=== PATIENT | male | born 1960 | race Caucasian/White ===

== ENCOUNTER 2021-07-03 13:24 | Inpatient (IN) | payer OTHER ==
[2021-07-03] MEDS ORDERED: SODIUM CHLORIDE 0.9% 500 ML INFUS.BAG IV ONE (18:33)
[2021-07-03] MEDS ORDERED: CEFTRIAXONE 1 GM in DEXTROSE 5%-WATER - 100 ML IVPB ONE (19:31)
[2021-07-03] MEDS ORDERED: AZITHROMYCIN IVPB 500 MG in DEXTROSE 5%-WATER - 250 ML IVPB ONE (19:31)
[2021-07-03] MEDS ORDERED: CEFTRIAXONE 1 GM/50 ML BAG ONE (19:48)
[2021-07-03 20:45] LABS: BASO % 0.2 % (0-2.0); EOS % 0.1 % (0-4.5); HEMATOCRIT 48.7 % (35.4-49); HEMOGLOBIN 16.4 GM/dL (11.7-16.9); LYMPH % 8.8 % (8-40); MCH 29.7 pg (25.7-33.7); MCHC 33.7 g/dl (32.0-35.9); MEAN PLT VOLUME 8.6 fl (7.5-11.1); MONO % 7.9 % (3.8-10.2); PLATELET COUNT 351 10^3/uL (134-434); RBC 5.53 M/mm3 (4.00-5.60); RDW 13.6 % (11.9-15.9); WHITE BLOOD COUNT 7.4 K/mm3 (4.0-10.0)
[2021-07-03 20:48] LABS: VENOUS BASE EXCESS 4.5 mmol/L (-2-2); VENOUS O2 SATURATION 25.2 % (70-80); VENOUS PCO2 46.7 mmHg (38-52); VENOUS PH 7.424 (7.310-7.410)
[2021-07-03] MEDS ORDERED: AZITHROMYCIN IVPB 500 MG/250 ML BAG IVPB ONE (20:55)
[2021-07-03 21:21] LABS: CHLORIDE 108 mmol/L (98-107); SODIUM 141 mmol/L (136-145)
[2021-07-03 21:23] LABS: ANION GAP 9 MMOL/L (8-16); BLOOD UREA NITROGEN 27.6 mg/dL (7-18); CO2 24 mmol/L (21-32)
[2021-07-03 21:24] LABS: ALBUMIN 2.4 g/dl (3.4-5.0); GLUCOSE,RANDOM 85 mg/dL (74-106)
[2021-07-03 21:27] LABS: SGOT/AST 90 U/L (15-37); SGPT/ALT 66 U/L (13-61)
[2021-07-03 21:28] LABS: BILIRUBIN,TOTAL 0.7 mg/dL (0.2-1); TOT PROT 5.9 g/dl (6.4-8.2)
[2021-07-03 21:29] LABS: ALK PHOS 54 U/L (45-117)
[2021-07-04] MEDS ORDERED: DEXAMETHASONE SOD PHOSPHATE 4 MG/1 ML VIAL IVPUSH ONE (00:46)
[2021-07-04] MEDS ORDERED: DEXAMETHASONE SOD PHOSPHATE 10 MG/1 ML VIAL ONE (01:02)
[2021-07-04 06:01] VITALS: BMI 22.4
[2021-07-04] MEDS ORDERED: ACETAMINOPHEN 1000 MG/100 ML BAG IVPB PRN (06:39)
[2021-07-04] MEDS ORDERED: ENOXAPARIN NA (PORCINE) 40 MG/0.4 ML DISP.SYRIN SQ SCH (10:00)
[2021-07-04] MEDS ORDERED: ERGOCALCIFEROL (VIT D2) 50,000 UNIT (1.25 MG) CAPSULE PO SCH (10:00)
[2021-07-04 10:10] LABS: ALBUMIN 2.2 g/dl (3.4-5.0); CALCIUM 7.8 mg/dL (8.5-10.1); MAGNESIUM 2.5 mg/dL (1.8-2.4)
[2021-07-04 10:11] LABS: BASO % 0.2 % (0-2.0); HEMATOCRIT 41.7 % (35.4-49); LYMPH % 9.4 % (8-40); MCH 29.7 pg (25.7-33.7); MCHC 33.7 g/dl (32.0-35.9); MEAN PLT VOLUME 9.2 fl (7.5-11.1); MONO % 5.5 % (3.8-10.2); NEUT % 84.9 % (42.8-82.8); PLATELET COUNT 283 10^3/uL (134-434); RBC 4.73 M/mm3 (4.00-5.60); RDW 13.7 % (11.9-15.9); WHITE BLOOD COUNT 5.3 K/mm3 (4.0-10.0)
[2021-07-04 10:13] LABS: PHOSPHOROUS 3.5 mg/dL (2.5-4.9)
[2021-07-04 10:15] LABS: BILIRUBIN,TOTAL 0.6 mg/dL (0.2-1); TOT PROT 5.6 g/dl (6.4-8.2)
[2021-07-04] MEDS ORDERED: cefTRIAXone SODIUM 1 GM VIAL ONE (10:29)
[2021-07-04] MEDS ORDERED: DEXTROSE 5%-WATER - 50 ML IVPB ONE (10:30)
[2021-07-04] MEDS: CEFTRIAXONE 1 GM in DEXTROSE 5%-WATER - 50 ML IVPB SCH (10:38)
[2021-07-04] MEDS: AZITHROMYCIN IVPB 500 MG/250 ML BAG IVPB SCH (10:38)
[2021-07-04] MEDS: DEXAMETHASONE SOD PHOSPHATE 4 MG/1 ML VIAL IVPUSH SCH (10:38)
[2021-07-04] MEDS: ASCORBIC ACID 250 MG TABLET (FP) PO SCH (10:38)
[2021-07-04] MEDS: ZINC SULFATE 220 MG CAPSULE (FP) PO SCH (10:38)
[2021-07-04 16:48] LABS: EPI CELLS 6 /uL (0-25.1); HYALINE CASTS 2 /uL (0-3.1); PH,URINE 5.5 (5.0-8.0); URINE APPEARANCE CLEAR; URINE BACTERIA 1 /uL (0-1359); URINE BILIRUBIN NEGATIVE (NEGATIVE); URINE COLOR DK YELLOW; URINE GLUCOSE (UA) NEGATIVE (NEGATIVE); URINE KETONE NEGATIVE (NEGATIVE); URINE LEUK ESTERASE NEGATIVE (NEGATIVE); URINE NITRITE NEGATIVE (NEGATIVE); URINE PROTEIN 1+ (NEGATIVE); URINE RBC 4 /uL (0-23.9); URINE WBC 11 /uL (0-25.8)
[2021-07-04] MEDS: ENOXAPARIN NA (PORCINE) 40 MG/0.4 ML DISP.SYRIN SQ SCH (22:20)
[2021-07-05 09:19] LABS: HEMATOCRIT 42.3 % (35.4-49); HEMOGLOBIN 14.1 GM/dL (11.7-16.9); MCH 29.4 pg (25.7-33.7); MCHC 33.3 g/dl (32.0-35.9); MEAN CELL VOLUME 88.2 fl (80-96); MEAN PLT VOLUME 9.5 fl (7.5-11.1); PLATELET COUNT 350 10^3/uL (134-434); RDW 13.4 % (11.9-15.9)
[2021-07-05] MEDS ORDERED: cefTRIAXone SODIUM 1 GM VIAL ONE (09:38)
[2021-07-05] MEDS ORDERED: DEXTROSE 5%-WATER - 50 ML IVPB ONE (09:38)
[2021-07-05 09:45] LABS: MAGNESIUM 2.5 mg/dL (1.8-2.4)
[2021-07-05 09:47] LABS: ALBUMIN 2.2 g/dl (3.4-5.0); BLOOD UREA NITROGEN 28.6 mg/dL (7-18); CALCIUM 8.1 mg/dL (8.5-10.1)
[2021-07-05 09:48] LABS: CREATININE 0.9 mg/dL (0.55-1.3)
[2021-07-05 09:50] LABS: PHOSPHOROUS 3.7 mg/dL (2.5-4.9)
[2021-07-05 09:51] LABS: TOT PROT 5.6 g/dl (6.4-8.2)
[2021-07-05 09:52] LABS: BILIRUBIN,TOTAL 0.7 mg/dL (0.2-1)
[2021-07-05] MEDS: AZITHROMYCIN IVPB 500 MG/250 ML BAG IVPB SCH ×2 (10:03→10:30)
[2021-07-05] MEDS: CEFTRIAXONE 1 GM in DEXTROSE 5%-WATER - 50 ML IVPB SCH (10:05)
[2021-07-05] MEDS: DEXAMETHASONE SOD PHOSPHATE 4 MG/1 ML VIAL IVPUSH SCH ×2 (10:06→10:30)
[2021-07-05] MEDS: ZINC SULFATE 220 MG CAPSULE (FP) PO SCH (10:08)
[2021-07-05] MEDS: ENOXAPARIN NA (PORCINE) 40 MG/0.4 ML DISP.SYRIN SQ SCH ×2 (10:08→21:10)
[2021-07-05] MEDS: ASCORBIC ACID 250 MG TABLET (FP) PO SCH (10:09)
[2021-07-05] MEDS ORDERED: CHOLECALCIFEROL (VIT D3 5000 UNITS) 125 MCG TAB PO SCH (12:30)
[2021-07-05] MEDS ORDERED: ACETAMINOPHEN 325 MG TABLET (FP) PO PRN (21:32)
[2021-07-05] MEDS ORDERED: MELATONIN 5 MG TABLETS PO PRN (21:32)
[2021-07-05] MEDS ORDERED: ATORVASTATIN CA 20 MG TABLET (FP) PO SCH (22:00)
[2021-07-06] MEDS ORDERED: CHOLECALCIFEROL (VIT D3) 5000 UNITS (125 MCG) CAP PO SCH (10:00)
[2021-07-06] MEDS: ENOXAPARIN NA (PORCINE) 40 MG/0.4 ML DISP.SYRIN SQ SCH (10:05)
[2021-07-06] MEDS: ASCORBIC ACID 250 MG TABLET (FP) PO SCH (10:06)
[2021-07-06] MEDS: DEXAMETHASONE SOD PHOSPHATE 4 MG/1 ML VIAL IVPUSH SCH (10:06)
[2021-07-06] MEDS: ZINC SULFATE 220 MG CAPSULE (FP) PO SCH (10:06)
[2021-07-06] MEDS: AZITHROMYCIN IVPB 500 MG/250 ML BAG IVPB SCH (10:07)
[2021-07-06 16:23] VITALS: BP 136/71; PULSE 62; TEMP 98.6
== END 2021-07-06 17:21 | disposition home or self-care (01) | DRG 177 ==
LOC: JER 13:24 → JERBED 20:57 → J8W 07-04 05:12
PROVIDERS: ADMIT Internal Medicine; ATTEND Internal Medicine
DX: U07.1 COVID-19 (principal); J12.82 Pneumonia due to coronavirus disease 2019; J96.21 Acute and chronic respiratory failure with hypoxia; F20.9 Schizophrenia, unspecified; R91.1 Solitary pulmonary nodule; M47.9 Spondylosis, unspecified; K80.20 Calculus of gallbladder without cholecystitis without obstruction
CPT/HCPCS: 36415; 71045-TC-FY; 71275-TC; 80053; 80061; 81003; 82550; 82553; 82728; 82803; 83036; 83615; 83735; 84100; 84484; 85025; 85027; 85379; 86140; 87804; 87807; 87899; 93005; 93010; 94761; 99285-25; C9803; U0003; U0005

== ENCOUNTER 2023-03-29 17:24 | Inpatient (IN) | payer OTHER ==
[2023-03-29 17:35] VITALS: BMI 23.6
[2023-03-29] MEDS ORDERED: MIDAZOLAM HCL 2 MG/2 ML SINGLE DOSE VIAL IM ONE (19:37)
[2023-03-29] MEDS ORDERED: HALOPERIDOL LACTATE 5 MG/ML IM ONE ×2 (19:51→20:04)
[2023-03-29] MEDS ORDERED: MIDAZOLAM HCL 2 MG/2 ML SINGLE DOSE VIAL ONE (20:03)
[2023-03-29 20:13] LABS: BASO % 0.5 % (0-2.0); EOS % 0.9 % (0-4.5); LYMPH % 21.9 % (8-40); MCH 31.7 pg (25.7-33.7); MCHC 34.8 g/dl (32.0-35.9); MEAN CELL VOLUME 91.1 fl (80-96); MEAN PLT VOLUME 9.1 fl (7.5-11.1); MONO % 8.2 % (3.8-10.2); NEUT % 68.5 % (42.8-82.8); PLATELET COUNT 303 10^3/uL (134-434); RBC 4.72 M/mm3 (4.00-5.60); RDW 15.2 % (11.9-15.9); WHITE BLOOD COUNT 7.9 K/mm3 (4.0-10.0)
[2023-03-29 20:19] LABS: INR 1.01 (0.83-1.09); PROTHROMBIN TIME (PATIENT) 11.7 SEC (9.7-13.0)
[2023-03-29 20:22] LABS: ACTIVATED PTT 29.1 SECONDS (25.2-36.5)
[2023-03-29 20:27] LABS: URINE APPEARANCE CLEAR; URINE BILIRUBIN NEGATIVE (NEGATIVE); URINE COLOR YELLOW; URINE GLUCOSE (UA) NEGATIVE (NEGATIVE); URINE KETONE TRACE (NEGATIVE); URINE LEUK ESTERASE NEGATIVE (NEGATIVE); URINE NITRITE NEGATIVE (NEGATIVE); URINE PROTEIN NEGATIVE (NEGATIVE); URINE UROBILINOGEN 0.2 mg/dL (0.2-1.0)
[2023-03-29 20:31] LABS: POTASSIUM 3.9 mmol/L (3.5-5.1)
[2023-03-29 20:34] LABS: ALBUMIN 3.7 g/dl (3.4-5.0); BLOOD UREA NITROGEN 26.7 mg/dL (7-18)
[2023-03-29 20:37] LABS: CREATININE 1.3 mg/dL (0.55-1.3)
[2023-03-29 20:39] LABS: BILIRUBIN,TOTAL 0.6 mg/dL (0.2-1); TOT PROT 7.1 g/dl (6.4-8.2)
[2023-03-30 05:19] LABS: COCAINE, UR NEGATIVE (NEGATIVE); URINE AMPHETAMINES NEGATIVE (NEGATIVE); URINE BARBITURATES NEGATIVE (NEGATIVE); URINE BENZODIAZEPINES NEGATIVE (NEGATIVE)
[2023-03-30 06:08] LABS: METHADONE, UR NEGATIVE (NEGATIVE); OPIATES, URI NEGATIVE (NEGATIVE); PHENCYCLIDINE,URINE NEGATIVE (NEGATIVE)
[2023-03-30 07:07] LABS: POTASSIUM 3.8 mmol/L (3.5-5.1)
[2023-03-30 07:10] LABS: HEMATOCRIT 40.2 % (35.4-49); HEMOGLOBIN 13.4 GM/dL (11.7-16.9); MCH 30.9 pg (25.7-33.7); MCHC 33.2 g/dl (32.0-35.9); MEAN PLT VOLUME 8.5 fl (7.5-11.1); PLATELET COUNT 280 10^3/uL (134-434); RBC 4.32 M/mm3 (4.00-5.60); RDW 15.4 % (11.9-15.9); WHITE BLOOD COUNT 7.7 K/mm3 (4.0-10.0)
[2023-03-30 08:26] LABS: CALCIUM 8.6 mg/dL (8.5-10.1)
[2023-03-30 08:28] LABS: ALBUMIN 3.4 g/dl (3.4-5.0)
[2023-03-30 08:29] LABS: CREATININE 1.1 mg/dL (0.55-1.3); PHOSPHOROUS 3.6 mg/dL (2.5-4.9)
[2023-03-30 08:31] LABS: TOT PROT 6.5 g/dl (6.4-8.2)
[2023-03-30] MEDS ORDERED: HALOPERIDOL LACTATE 5 MG/ML IM ONE (08:35)
[2023-03-30 08:36] LABS: MAGNESIUM 2.2 mg/dL (1.8-2.4)
[2023-03-30] MEDS: metoPROLOL SUCCINATE 25 MG TAB.SR.24H (FP) PO SCH ×2 (10:38→22:07)
[2023-03-30] MEDS: HALOPERIDOL 1 MG TABLET PO SCH ×2 (10:49→22:06)
[2023-03-30] MEDS: BENZTROPINE MESYLATE 0.5 MG TABLET (FP) PO SCH (11:47)
[2023-03-30] MEDS: FLUoxetine HCL 10 MG CAPSULE PO SCH (11:47)
[2023-03-30] MEDS: HEPARIN NA (PORCINE) 5,000 UNITS/ML 1ML VIAL SQ SCH ×2 (15:30→22:06)
[2023-03-31] MEDS: HEPARIN NA (PORCINE) 5,000 UNITS/ML 1ML VIAL SQ SCH ×3 (05:50→21:59)
[2023-03-31] MEDS: metoPROLOL SUCCINATE 25 MG TAB.SR.24H (FP) PO SCH ×2 (09:58→22:00)
[2023-03-31] MEDS: BENZTROPINE MESYLATE 0.5 MG TABLET (FP) PO SCH (09:58)
[2023-03-31] MEDS: HALOPERIDOL 1 MG TABLET PO SCH (09:59)
[2023-03-31] MEDS: FLUoxetine HCL 10 MG CAPSULE PO SCH (11:15)
[2023-03-31] MEDS: TRIHEXYPHENIDYL HCL 2 MG TABLET PO SCH (21:59)
[2023-04-01] MEDS: HEPARIN NA (PORCINE) 5,000 UNITS/ML 1ML VIAL SQ SCH ×3 (06:20→21:55)
[2023-04-01] MEDS: metoPROLOL SUCCINATE 25 MG TAB.SR.24H (FP) PO SCH (10:08)
[2023-04-01] MEDS: TRIHEXYPHENIDYL HCL 2 MG TABLET PO SCH ×2 (10:08→21:54)
[2023-04-01] MEDS ORDERED: ACETAMINOPHEN 325 MG TABLET (FP) PO PRN (14:23)
[2023-04-02] MEDS: HEPARIN NA (PORCINE) 5,000 UNITS/ML 1ML VIAL SQ SCH ×3 (05:30→21:01)
[2023-04-02] MEDS ORDERED: metoPROLOL SUCCINATE 25 MG TAB.SR.24H (FP) PO SCH (10:00)
[2023-04-02 10:06] LABS: METHYLMALONIC ACID- 184 nmol/L (0-378)
[2023-04-02 10:31] LABS: EOS % 0.9 % (0-4.5); HEMATOCRIT 37.8 % (35.4-49); HEMOGLOBIN 12.9 GM/dL (11.7-16.9); LYMPH % 27.1 % (8-40); MCH 31.3 pg (25.7-33.7); MCHC 34.2 g/dl (32.0-35.9); MEAN CELL VOLUME 91.5 fl (80-96); MEAN PLT VOLUME 8.9 fl (7.5-11.1); MONO % 6.9 % (3.8-10.2); NEUT % 64.1 % (42.8-82.8); PLATELET COUNT 228 10^3/uL (134-434); RBC 4.13 M/mm3 (4.00-5.60); RDW 14.9 % (11.9-15.9); WHITE BLOOD COUNT 5.9 K/mm3 (4.0-10.0)
[2023-04-02] MEDS: TRIHEXYPHENIDYL HCL 2 MG TABLET PO SCH ×2 (10:36→20:59)
[2023-04-02 10:52] LABS: POTASSIUM 3.6 mmol/L (3.5-5.1)
[2023-04-02 10:56] LABS: BLOOD UREA NITROGEN 25.8 mg/dL (7-18); CALCIUM 8.2 mg/dL (8.5-10.1); MAGNESIUM 2.1 mg/dL (1.8-2.4)
[2023-04-02 10:59] LABS: CREATININE 1.3 mg/dL (0.55-1.3)
[2023-04-02 11:00] LABS: BILIRUBIN,TOTAL 0.9 mg/dL (0.2-1); TOT PROT 5.9 g/dl (6.4-8.2)
[2023-04-02] MEDS ORDERED: SODIUM CHLORIDE 1,000 ML IV SCH ×2 (16:00)
[2023-04-02] MEDS ORDERED: LORazepam 1 MG TABLET PO ONE (20:52)
[2023-04-03] MEDS: HEPARIN NA (PORCINE) 5,000 UNITS/ML 1ML VIAL SQ SCH ×3 (05:52→21:37)
[2023-04-03] MEDS: TRIHEXYPHENIDYL HCL 2 MG TABLET PO SCH ×2 (09:31→21:37)
[2023-04-03 21:09] VITALS: RESP 16
[2023-04-04] MEDS: HEPARIN NA (PORCINE) 5,000 UNITS/ML 1ML VIAL SQ SCH ×3 (05:34→21:26)
[2023-04-04] MEDS: TRIHEXYPHENIDYL HCL 2 MG TABLET PO SCH (09:59)
[2023-04-04] MEDS: SODIUM CHLORIDE 1,000 ML IV SCH ×2 (13:11→22:25)
[2023-04-05] MEDS: TRIHEXYPHENIDYL HCL 2 MG TABLET PO SCH ×2 (01:10→09:24)
[2023-04-05] MEDS: HEPARIN NA (PORCINE) 5,000 UNITS/ML 1ML VIAL SQ SCH (05:15)
[2023-04-05 09:18] VITALS: BP 112/63; PULSE 55; TEMP 98.3
== END 2023-04-05 13:30 | DRG 92 ==
LOC: JER 17:24 → JERBED 22:18 → J8W 03-30 07:13 → OBSVTOIN 03-30 08:44
PROVIDERS: ADMIT Internal Medicine; ATTEND Nurse Practitioner Acute Care
DX: G24.01 Drug induced subacute dyskinesia (principal); F20.89 Other schizophrenia; R29.6 Repeated falls; Z86.16 Personal history of COVID-19; R00.1 Bradycardia, unspecified; T50.995A Adverse effect of other drugs, medicaments and biological substances, initial encounter
CPT/HCPCS: 0241U-QW; 36415; 70450-TC; 71045-TC-FY; 72125-TC; 72148-TC; 72170-TC-FY; 80053; 80307; 81003; 82607; 83036; 83735; 83921; 84100; 84443; 84484; 85025; 85027; 85610; 85730; 86780; 87086; 87635; 93005; 93010; 97116-GP; 97161-GP; 99285-25; G0378; J1644